=== PATIENT | female | born 1970 | race Hispanic/Latino ===

== ENCOUNTER 2018-03-15 12:40 | Emergency (ER) | payer SELFPAY | END 2018-03-15 13:29 | disposition home or self-care (01) | LOC: MADERS 12:40 → MERGE 12:40 → MADERS 13:29 | DX: I10 Essential (primary) hypertension (principal); Z79.899 Other long term (current) drug therapy | CPT/HCPCS: 99283 ==

== ENCOUNTER 2021-11-25 13:10 | Emergency (ER) | payer SELFPAY ==
[2021-11-25] MEDS ORDERED: predniSONE 20 MG TAB ONE (13:42)
[2021-11-25] MEDS ORDERED: diphenhydrAMINE 25 MG CAP ONE (13:42)
== END 2021-11-25 14:00 | disposition home or self-care (01) ==
LOC: MADERS 13:10
DX: J30.9 Allergic rhinitis, unspecified (principal); I10 Essential (primary) hypertension; K21.9 Gastro-esophageal reflux disease without esophagitis; E78.00 Pure hypercholesterolemia, unspecified; E78.5 Hyperlipidemia, unspecified; Z79.899 Other long term (current) drug therapy
CPT/HCPCS: 99283; J7512